=== PATIENT | female | born 1975 | race American Indian/Alaskan Native ===

== ENCOUNTER 2018-07-25 07:08 | Day surgery (SDC) | payer BC ==
[2018-07-25 08:35] VITALS: BP 130/69
--- NOTE | 2018-07-25 10:48 | Ultrasound Report ---
ULTRASOUND EXTREMITY NONVASCULAR RIGHT: RIGHT KNEE X-RAY, 4 VIEWS: HISTORY: Right knee pain. Mass. FINDINGS: This examination was scheduled as an ultrasound guided right knee biopsy/aspiration. After examining the patient, right knee x-ray was ordered. Radiographs of the right knee demonstrates [id number] tricompartmental osteoarthritic changes. The patellofemoral space is most affected. 2 calcified intra-articular foreign bodies are identified on x-ray and ultrasound. A 3.3 x 1.6 cm calcified foreign body is identified in the lateral recess of the suprapatellar bursa. A smaller 1.5 x 0.9 cm calcified intra-articular body is identified within the posterior joint space between the femoral condyles. No suspicious soft tissue mass or significant joint effusion was detected on x-ray and ultrasound for biopsy/aspiration. These findings were explained to the patient in the radiology department. IMPRESSION: Osteoarthritis. 2 calcified free intra-articular foreign bodies are identified as outlined above. No lesion or fluid for biopsy/aspiration was present. Consider further characterization with MRI of the right knee without contrast or arthroscopy.
== END 2018-07-25 10:34 | disposition home or self-care (01) ==
LOC: CATHLABREC 07:08 → EDSTATUS 07:30 → CATHLABREC 10:34
PROVIDERS: ATTEND Physical Medicine & Rehabilitation
DX: M17.11 Unilateral primary osteoarthritis, right knee (principal); M25.861 Other specified joint disorders, right knee; F41.9 Anxiety disorder, unspecified; F17.290 Nicotine dependence, other tobacco product, uncomplicated; Z79.899 Other long term (current) drug therapy; Z98.890 Other specified postprocedural states